=== PATIENT | female | born 1940 | race Caucasian/White ===

== ENCOUNTER 2019-09-17 17:26 | Inpatient (IN) | payer OTHER ==
[~2019-09-17] VITALS: Ht 152.4 cm; Wt 67.1 kg
[2019-09-17 17:48] VITALS: BP 144/66
--- NOTE | 2019-09-17 17:52 | NUR ---
PT'S COUSIN CONACT INFO: GEOFFREY WOOD [phone] CELL
[2019-09-17] MEDS ORDERED: TOPROL XL100 MG PO (18:18)
[2019-09-17] MEDS ORDERED: PANTOPRAZOLE SO40 M1 PO (18:19)
[2019-09-17] MEDS ORDERED: DILTIAZEM 24HR240 M1 PO (18:19)
[2019-09-17] MEDS ORDERED: VENLAFAXINE HCL75 M2 PO (18:20)
[2019-09-17] MEDS ORDERED: CLONAZEPAM 0.50.5 M1 PO (18:21)
[2019-09-17] MEDS ORDERED: JANUMET XR 50-1 EAC1 PO (18:22)
[2019-09-17] MEDS ORDERED: ELIQUIS5 MG PO (18:22)
[2019-09-17] MEDS ORDERED: ATORVASTATIN CA20 MG PO (18:23)
[2019-09-17 18:26] LABS: ABSOLUTE NEUTROPHILS 6.9 thou/uL (1.4-8.2); BASOPHILS 0.6 % (0.0-2.0); EOSINOPHILS 0.4 % (0.0-3.0); HEMATOCRIT 36.1 % (37.0-47.0); HEMOGLOBIN 11.8 gm/dL (12.0-15.0); LYMPHOCYTES 13.7 % (24.0-44.0); MCH 27.3 pg (26.0-34.0); MCHC 32.6 g/dL (28.0-37.0); MCV 83.6 fL (80.0-100.0); MONOCYTES 7.7 % (1.0-8.0); PLATELET COUNT 268 thou/uL (150-400); POLYS 77.6 % (36.0-66.0); RBC 4.32 mil/uL (4.20-5.00); RDW 14.7 % (10.5-14.5); WBC 8.9 thou/uL (4.0-11.0)
[2019-09-17 18:35] LABS: ANION GAP 10 mmol/L (7-16); BUN 12 mg/dL (7-18); CALCIUM 9.2 mg/dL (8.5-10.1); CHLORIDE 99 mmol/L (98-107); CO2 26 mmol/L (21-32); CREATININE 1.7 mg/dL (0.6-1.0); GLUCOSE 142 mg/dL (74-106); POTASSIUM 4.4 mmol/L (3.5-5.1); SODIUM 135 mmol/L (136-145)
[2019-09-17 18:43] LABS: APTT 30.8 Seconds (24.5-32.8); INR 1.1
[2019-09-17 18:44] LABS: TROPONIN-I <0.06 ng/mL (<0.06)
[2019-09-17 20:35] LABS: URINE BILIRUBIN NEGATIVE (Negative); URINE BLOOD NEGATIVE (Negative); URINE CLARITY CLEAR; URINE COLOR YELLOW; URINE GLUCOSE-RANDOM* NEGATIVE (Negative); URINE KETONES TRACE (Negative); URINE LEUKOCYTES-REFLEX NEGATIVE (Negative); URINE NITRITE-REFLEX NEGATIVE (Negative); URINE PROTEIN (DIPSTICK) NEGATIVE (Negative); URINE SPECIFIC GRAVITY <= 1.005 (1.005-1.035); URINE UROBILINOGEN 0.2 E.U./dl (0.2-1.0)
[2019-09-17 22:13] VITALS: BP 148/70
[2019-09-17 22:37] VITALS: BP 143/67
[2019-09-17 23:12] VITALS: BP 143/79
[2019-09-18] MEDS ORDERED: MOBIC7.5 M1 PO (00:51)
[2019-09-18] MEDS ORDERED: CHILDREN'S15 MG/1 M2 PO (00:58)
[2019-09-18 04:23] VITALS: BP 141/76
--- NOTE | 2019-09-18 04:47 | NUR ---
PATIENT ARRIVED ON UNIT AT 2250 VIA CART FROM THE ED ACCOMPANIED BY ED PERSONEL. PATIENT ALERT AND ORIENTED X4. PATIENT PLEASANT AND COOPERATIVE. C/O PAIN IN BACK AND LOWER EXTREMITIES. WHEN WENT IN TO SEE IF SHE WANTED HER PAIN N=MED SHE SAID SHE WAS NOT IN PAIN. PATIENT UP WITH GB AND CANE. STILL WEAK IN THE LEGS. IV IN RAC PATENT WITH FLUIDS INFUSING. FALL PRECAUTIONS IN PLACE. SLEPT OFF AND ON DURING NIGHT.
[2019-09-18 05:34] LABS: HEMATOCRIT 34.1 % (37.0-47.0); HEMOGLOBIN 11.3 gm/dL (12.0-15.0); MCHC 33.3 g/dL (28.0-37.0); RBC 4.06 mil/uL (4.20-5.00); RDW 14.6 % (10.5-14.5)
[2019-09-18 05:42] LABS: CALCIUM 8.7 mg/dL (8.5-10.1); CREATININE 1.4 mg/dL (0.6-1.0); MAGNESIUM 1.1 mg/dL (1.8-2.4); POTASSIUM 4.2 mmol/L (3.5-5.1)
--- NOTE | 2019-09-18 07:26 | NUR ---
ASSUMED CARE OF PATIENT SHE IS ALERT XS 4. NO PAIN OR RESP DISTRESS.
[2019-09-18 07:48] VITALS: BP 152/79
--- NOTE | 2019-09-18 12:34 | NUR ---
CALLED NEURO CONSULT TO DR KARISHMA PENG [phone] LEFT INFO WITH ANSWERING SERVICE.
[2019-09-18 16:56] VITALS: BP 125/73
--- NOTE | 2019-09-18 17:31 | NUR ---
PATIENT HAD COUSIN BRING UP HER CELL PHONE CORD TO CHARGE HER PHONE, SHE ALSO GAVE HER COUSIN HER BANK CARD, SHE ALSO UPDATED HER ON HER CARE SHE DOES NOT NEED NURSING TO UPDATE.
[2019-09-18 19:25] VITALS: BP 143/53
[2019-09-19 03:07] LABS: GLYCOHEMOGLOBIN (HGB A1C) 5.8 % (4.8-5.6)
[2019-09-19 03:35] VITALS: BP 742/68
--- NOTE | 2019-09-19 03:58 | NUR ---
ASSUMED PT CARE AT 1900. PT REPORTS NO PAIN. UP TO BSC WITH STANDBY ASSIST, STEADY ON FEET. NO INSULIN REQUIRED TONIGHT. VSS. NO OTHER SIGNIFICANT CHANGES.
[2019-09-19 13:05] VITALS: BP 143/71
--- NOTE | 2019-09-19 14:12 | NUR ---
ASSUMED PATIENT CARE AT 0700. SLIGHT PAIN ON BOTH SHOULDER BACK REPORTED ON ASKING, NOTED A PAIN OF 3, SAID NO MEDICINE NEEDED. PATIENT STAND WITH 1 PERSON X AASSIST AND MOVED TO BEDSIDE COMMODE. PATIENTS GOAL FOR THE DAY IS TO GO HOME AND CONCERNS THAT SHE NEEDS TO WALK WITHOUT FALLING. ALERTX ORIENTED X4, RTX ACAND SALINE LOCKED, NO SKIN ISSUES NOTED. NEUROSURGEON CONSULTED AND SAID THE PATIENT CAN BE DISCHARGED WITH OP PHYSICAL THERAPY AND HOSPITALIST SAID DC WITH HOME HEALTH. CONSULTED HOSPITALIST AND HE SAID, OK TO DC WITH OP PHYSICAL THERAPY.
--- NOTE | 2019-09-20 07:03 | NUR ---
RECEIVED OT ORDERS. PATIENT DISCHARGED PRIOR TO OT BEING INITIATED.
--- NOTE | 2019-09-20 07:53 | EKG ---
[facility] [address] [place] [address] ELECTROCARDIOGRAM REPORT Name: TRINA SANFORD Rl Room #: 437-P [facility] IN M.R.#: [id number] Admission: 09/17/19 Attend Phys: Christian Silverio MD Discharge: 09/19/19 Date of : 40 Report #: [id number] THIS REPORT FOR: cc: PATRICK - No family physician/PCP FAM - No family physician/PCP Vish Bernstein MD [facility] THIS REPORT FOR: //name// [facility] ED Test Date: 2019-09-17 Test Time: 17:47:20 Pat Name: TRINA SANFORD Department: Room: 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1940 Requested By: Alexi Wylie Order Number: [id number] MD: Vish Bernstein Measurements Intervals [place] Rate: 76 P: TN: QRS: 47 QRSD: 97 T: 93 QT: 423 QTc: 476 Interpretive Statements Atrial fibrillation Possible inferior infarct, old Nonspecific T wave abnormality Compared to ECG 06/13/1999 09:22:05 No significant change was found Electronically Signed On 09-20-2019 7:51:32 CDT by Vish Bernstein [email or web address] <ELECTRONICALLY SIGNED> By: Vish Bernstein MD, [facility] 09/20/19 0751 [id number] Vish Bernstein MD, [facility] /EPI
== END 2019-09-19 15:00 | disposition home or self-care (01) | DRG 551 ==
LOC: ER 17:26 → EROBS 21:40 → 4S 22:50
PROVIDERS: Emergency Medicine; Nurse Practitioner Family; ADMIT Internal Medicine
DX: M48.061 Spinal stenosis, lumbar region without neurogenic claudication (principal); N17.0 Acute kidney failure with tubular necrosis; M99.83 Other biomechanical lesions of lumbar region; I10 Essential (primary) hypertension; E78.5 Hyperlipidemia, unspecified; E11.9 Type 2 diabetes mellitus without complications; I48.91 Unspecified atrial fibrillation; K21.9 Gastro-esophageal reflux disease without esophagitis; F41.9 Anxiety disorder, unspecified; F32.9 Major depressive disorder, single episode, unspecified; G89.29 Other chronic pain; M54.9 Dorsalgia, unspecified; Z79.899 Other long term (current) drug therapy; Z79.01 Long term (current) use of anticoagulants
CPT/HCPCS: 10102